=== PATIENT | female | born 1965 | race Caucasian/White ===

== ENCOUNTER 2018-06-11 09:08 | Outpatient (REF) | payer MEDICARE, MEDICAID, SELFPAY ==
[2018-06-11 19:48] LABS: Anion Gap 12.5 mmol/L (3-11); BUN 16 mg/dL (7-18); CO2 22.5 mmol/L (21.0-32.0); CREATININE 1.08 mg/dL (0.55-1.02); Calcium 8.8 mg/dL (8.5-10.1); Chloride 107 mmol/L (98-107); Cholesterol 176 mg/dL (50-200); Estimated GFR 52.87 (mL/min/1.73m2); Glucose 88 mg/dL (70-100); HDL Cholesterol 54 mg/dL (40-60); LDL CHOLESTEROL 103 mg/dL (<100); Potassium 4.3 mmol/L (3.5-5.1); Sodium 142 mmol/L (136-145); Triglyceride 103 mg/dL (30-150)
[2018-06-11 23:21] LABS: Vitamin D 25 Total 39.5 ng/ml (30-100)
[2018-06-13 11:45] LABS: Hepatitis C Ab w Rflx HCV PCR Negative (NEGAT)
== END 2018-06-11 09:28 ==
LOC: NCHCN 09:08
PROVIDERS: PCP Nurse Practitioner Family; Visit Provider Nurse Practitioner Family
DX: M89.9 Disorder of bone, unspecified (principal); R79.89 Other specified abnormal findings of blood chemistry; Z13.6 Encounter for screening for cardiovascular disorders; Z11.59 Encounter for screening for other viral diseases
CPT/HCPCS: 80048; 80061; 82306; 83721; 86803

== ENCOUNTER 2018-10-30 14:50 | Outpatient (REF) | payer MEDICARE, MEDICAID, SELFPAY ==
--- NOTE | 2018-10-30 14:25 | PAPFT_PTH ---
PATIENT: Saige Middleton [id number] AGE/SX: 53/F ROOM: RE10/30/[address]: Adenike Mcclellan : 1965 BED: DIS: 10/30/2018 SPEC #: [id number] RECD: 10/30/18 18:09 STATUS: GALO STEIN #: [id number] CHANCE: 10/30/18 14:[address]: Adenike Mcclellan DEPT: [facility] Cytology RECD BY: Micki Garcia Tissues: 1 - CX/ENDOCX FOR PAP SMEARS Procedures: PAP THIN PREP/UVM Screening HPV DNA PROBE Comments: [id number]
== END 2018-10-30 15:10 ==
LOC: NCHCN 14:50
PROVIDERS: PCP Nurse Practitioner Family; Visit Provider Nurse Practitioner Family
DX: Z12.4 Encounter for screening for malignant neoplasm of cervix (principal); Z11.51 Encounter for screening for human papillomavirus (HPV)
CPT/HCPCS: 88142; 87624

== ENCOUNTER 2019-11-08 20:44 | Outpatient (REF) | payer MEDICARE, MEDICAID, SELFPAY ==
[2019-11-08 19:12] LABS: Anion Gap 10.2 mmol/L (3-11); BUN 19 mg/dL (7-18); CO2 24.8 mmol/L (21.0-32.0); CREATININE 1.07 mg/dL (0.55-1.02); Calcium 8.6 mg/dL (8.5-10.1); Chloride 107 mmol/L (98-107); Estimated GFR 53.05 (mL/min/1.73m2); Glucose 96 mg/dL (74-106); Potassium 3.7 mmol/L (3.5-5.1); Sodium 142 mmol/L (136-145)
[2019-11-11 05:58] LABS: Vitamin D 25 Total 34.4 ng/ml (30-100)
== END 2019-11-08 21:04 ==
LOC: NCHCN 20:44
PROVIDERS: PCP Nurse Practitioner Family; Visit Provider Nurse Practitioner Psychiatric/Mental Health
DX: Z79.899 Other long term (current) drug therapy (principal); Z51.81 Encounter for therapeutic drug level monitoring; R69 Illness, unspecified
CPT/HCPCS: 80048; 82306; 84443

== ENCOUNTER 2020-02-04 13:59 | Outpatient (REF) | payer MEDICARE, MEDICAID, SELFPAY | END 2020-02-04 14:19 | LOC: NCHCN 13:59 | PROVIDERS: PCP Nurse Practitioner Family; Visit Provider Nurse Practitioner Family | DX: N39.0 Urinary tract infection, site not specified (principal) | CPT/HCPCS: 87077; 87086; 87186 ==

== ENCOUNTER 2020-08-24 14:49 | Outpatient (REF) | payer MEDICARE, MEDICAID, SELFPAY ==
[2020-08-25 13:45] LABS: COVID-19 RT-PCR UVMMC Result Negative (Negative)
== END 2020-08-24 14:50 | disposition home or self-care (01) ==
LOC: NCHCN 14:49
PROVIDERS: PCP Nurse Practitioner Family; Visit Provider Internal Medicine
DX: Z20.822 Contact with and (suspected) exposure to COVID-19 (principal)
CPT/HCPCS: U0003; U0005

== ENCOUNTER 2020-11-10 11:04 | Outpatient (REF) | payer MEDICARE, MEDICAID, SELFPAY ==
[2020-11-10 17:17] LABS: Iron 80 ug/dL (50-170)
[2020-11-10 17:44] LABS: Ferritin 136 ng/mL (8-252); Vitamin B12 329 pg/mL (193-986)
== END 2020-11-10 11:05 | disposition home or self-care (01) ==
LOC: NCHCN 11:04
PROVIDERS: PCP Nurse Practitioner Family; Visit Provider Nurse Practitioner Family
DX: M16.12 Unilateral primary osteoarthritis, left hip (principal)
CPT/HCPCS: 82607; 82728; 83540; 83735

== ENCOUNTER 2020-12-08 16:35 | Outpatient (REF) | payer MEDICARE, MEDICAID, SELFPAY ==
[2020-12-10 09:58] LABS: Hepatitis C Ab w Rflx HCV PCR Negative (Negative)
[2020-12-10 10:10] LABS: HIV-1/2 Ag & Ab Screen Negative (Negative)
[2020-12-10 14:36] LABS: Chlamydia Result Negative (Negative); GC Result Negative (Negative)
[2020-12-11 11:56] LABS: HSV Type 1 Ab, IgG Negative (Negative); HSV Type 2 Ab, IgG Positive (Negative)
== END 2020-12-08 16:36 | disposition home or self-care (01) ==
LOC: NCHCN 16:35
PROVIDERS: PCP Nurse Practitioner Family; Visit Provider Nurse Practitioner Family
DX: Z11.3 Encounter for screening for infections with a predominantly sexual mode of transmission (principal); Z11.4 Encounter for screening for human immunodeficiency virus [HIV]; Z11.59 Encounter for screening for other viral diseases
CPT/HCPCS: 86803; 87389; 87491; 87591; 86695; 86696

== ENCOUNTER 2021-01-25 23:56 | Emergency (ER) | payer MEDICARE, MEDICAID, SELFPAY ==
[2021-01-26] VITALS (17 sets, daily range): BP systolic 101–119; BP diastolic 60–77; PULSE 65–78; RESP 12–27; TEMP 36.2; O2SAT 95–98
--- NOTE | 2021-01-26 | DI.CT_ITS ---
Exam(s) CT HEAD WO EXAM: CT HEAD WO CLINICAL HISTORY: new onset seizure. TECHNIQUE: Imaging Protocol: Axial computed tomography images with coronal and sagittal reformatted images were created and reviewed COMPARISON: No exams were available for comparison FINDINGS: Ventricles and Extra axial spaces: Normal in size and morphology for the patient's age. Hemorrhage: None. Cerebral parenchyma: Normal. Midline shift: None. Brainstem/Cerebellum: Normal. Calvarium: Normal. Visualized Paranasal sinuses/Mastoids: Clear. Soft Tissues: Unremarkable. IMPRESSION: No acute intracranial process. RADIATION DOSE DELIVERED: 719.88mGy.cm Total DLP DATA REPOSITORY: All CT scans at this facility are submitted to the National Radiology Data Registry (NRDR) Dose Index Registry (DIR) with the [employer] ([employer]). RADIATION OPTIMIZATION: All CT scans at this facility use at least one of these dose optimization te chniques: automated exposure control; mA and/or kV adjustment per patient size (includes targeted exa ms where dose is matched to clinical indication); or iterative reconstruction.
--- NOTE | 2021-01-26 | RT.EKG_ITS ---
APPROVED REPORT Exam: Resting ECG Reason for Exam: shortness of breath Patient Location: E HR:68 bpm ECG Measurements Heart Rate 68 AXIS NJ 156 P 73 QRSd 97 QRS 71 QT 387 T 39 QTc 411 Conclusion Sinus rhythm...normal P axis, V-rate 60- 99 Normal Depue Normal Electrocardiogram
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
[2021-01-26 00:46] LABS: Abs Immature Grans 0.03 10^3/uL (0.0-0.06); Absolute Basophil Count 0.04 10^3/uL (0.0-0.2); Absolute Eosinophil Count 0.15 10^3/uL (0.0-0.7); Absolute Lymphocyte Count 2.28 10^3/uL (1.2-3.4); Absolute Monocyte Count 0.68 10^3/uL (0.1-0.8); Absolute Neutrophil Count 7.19 10^3/uL (1.2-6.7); Basophils % 0.4; Eosinophils % 1.4; HCT 36.1 % (36.0-46.0); HGB 11.8 g/dL (11.2-15.7); Immature Grans % 0.3; MCH 33.5 pg (27.0-33.0); MCHC 32.7 % (32.0-36.0); MCV 102.6 fL (80-95); MPV 9.5 fL (8.0-11.0); Monocytes % 6.6; Neutrophils % 69.3; Nucleated RBC 0 %; Platelet Count 289 10^3/uL (130-400); RBC 3.52 10^6/uL (3.93-5.22); RDW 13.2 % (11.7-14.6); RDW-SD 49.9 fL; WBC 10.37 10^3/uL (4.4-10.8)
[2021-01-26 01:09] LABS: ALT 18 U/L (14-59); AST 14 U/L (15-37); Albumin 3.3 g/dL (3.4-5.0); Alkaline Phosphatase 104 U/L (46-116); Anion Gap 12.4 mmol/L (3-11); BUN 12 mg/dL (7-18); Bilirubin, Total 0.2 mg/dL (0.2-1.0); CO2 21.6 mmol/L (21.0-32.0); CREATININE 1.1 mg/dL (0.55-1.02); Calcium 8.5 mg/dL (8.5-10.1); Chloride 109 mmol/L (98-107); Glucose 96 mg/dL (74-106); Magnesium 1.9 mg/dL (1.8-2.4); Potassium 3.5 mmol/L (3.5-5.1); Sodium 143 mmol/L (136-145); TSH (W/Ref FT4) 2.93 uIU/mL (0.36-3.74)
[2021-01-26 01:10] LABS: *AMPHETAMINES SCREEN URINE Negative (Negative); *BARBITURATES SCREEN URINE Negative (Negative); *BENZODIAZEPINES SCREEN URINE Negative (Negative); Cannabinoids THC Positive (Negative); Cocaine Screen,Urine Negative (Negative); METHADONE URINE SCREEN Negative (Negative); OPIATES URINE SCREEN Negative (Negative)
[2021-01-26 01:12] LABS: Bilirubin Negative (Negative); Blood Negative (Negative); Clarity Sl Cloudy (Clear); Glucose Negative (Negative); Ketones Negative (Negative); Leukocyte Esterase Negative (Negative); Nitrite Negative (Negative); Specific Gravity 1.025 (1.005-1.025); Tricyclic Antidepressants Negative (Negative); Urobilinogen 0.2 EU/dL (Up TO 0.2); pH 5.5 (5-8)
[2021-01-26 01:12] LABS: ETHANOL BLOOD < 3.0 mg/dL (<3)
--- NOTE | 2021-01-26 02:10 | DI.VRAD_ITS ---
PROCEDURE INFORMATION: Exam: CT Head Without Contrast Exam date and time: 01/26/2021 12:07 AM Age: 55 years old Clinical indication: Other: Seizue; Patient HX: New onset seizure TECHNIQUE: Imaging protocol: Computed tomography of the head without contrast. Radiation optimization: All CT scans at this facility use at least one of these dose optimization techniques: automated exposure control; mA and/or kV adjustment per patient size (includes targeted exams where dose is matched to clinical indication); or iterative reconstruction. COMPARISON: No relevant prior studies available. FINDINGS: Brain: Mild periventricular white matter hypoattenuation is probably due to chronic small vessel ischemia. Cerebral ventricles: No ventriculomegaly. Paranasal sinuses: Visualized sinuses are unremarkable. No fluid levels. Mastoid air cells: Visualized mastoid air cells are well aerated. Bones/joints: Unremarkable. No acute fracture. Soft tissues: Unremarkable. IMPRESSION: No acute intracranial pathology Dictated and Authenticated by: Jimbo Key MD. Ordering:CEE Nixon MD
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
== END 2021-01-26 05:25 | disposition left against medical advice (07) ==
PROVIDERS: Emergency Provider Emergency Medicine; PCP Nurse Practitioner Family
DX: G40.409 Other generalized epilepsy and epileptic syndromes, not intractable, without status epilepticus (principal); Z53.29 Procedure and treatment not carried out because of patient's decision for other reasons
CPT/HCPCS: 36415; 80053; 80307; 93005; 99283; 99285; 70450; 80320; 81003; 83735; 84443; 84484; 85025; 93010; 99222

== ENCOUNTER 2021-02-25 09:25 | Outpatient (REF) | payer MEDICARE, MEDICAID, SELFPAY ==
[2021-02-27 12:29] LABS: COVID-19 RT-PCR UVMMC Result Negative (Negative)
== END 2021-02-25 09:26 | disposition home or self-care (01) ==
LOC: NCHCN 09:25
PROVIDERS: PCP Nurse Practitioner Family; Visit Provider Nurse Practitioner Family
DX: Z20.822 Contact with and (suspected) exposure to COVID-19 (principal)
CPT/HCPCS: U0003

== ENCOUNTER 2021-04-12 15:08 | Outpatient (REF) | payer MEDICARE, MEDICAID, SELFPAY ==
[2021-04-14 14:12] LABS: COVID-19 RT-PCR UVMMC Result Negative (Negative)
== END 2021-04-12 15:09 | disposition home or self-care (01) ==
LOC: NCHCN 15:08
PROVIDERS: PCP Nurse Practitioner Family; Visit Provider Nurse Practitioner Family
DX: Z20.822 Contact with and (suspected) exposure to COVID-19 (principal)
CPT/HCPCS: U0003

== ENCOUNTER 2021-04-14 21:16 | Outpatient (REF) | payer MEDICARE, MEDICAID, SELFPAY | END 2021-04-14 21:17 | disposition home or self-care (01) | LOC: NCHCN 21:16 | PROVIDERS: PCP Nurse Practitioner Family; Visit Provider Physician Assistant | DX: N89.8 Other specified noninflammatory disorders of vagina (principal); H92.02 Otalgia, left ear | CPT/HCPCS: 87480; 87510; 87660 ==

== ENCOUNTER 2021-04-26 09:20 | Outpatient (REF) | payer MEDICARE, MEDICAID, SELFPAY ==
[2021-04-28 10:51] LABS: COVID-19 RT-PCR UVMMC Result Negative (Negative)
== END 2021-04-26 09:21 | disposition home or self-care (01) ==
LOC: NCHCN 09:20
PROVIDERS: PCP Nurse Practitioner Family; Visit Provider Nurse Practitioner Family
DX: Z20.822 Contact with and (suspected) exposure to COVID-19 (principal)
CPT/HCPCS: U0003

== ENCOUNTER 2021-05-26 15:22 | Outpatient (REF) | payer MEDICARE, MEDICAID, SELFPAY ==
[2021-05-28 15:54] LABS: COVID-19 RT-PCR UVMMC Result Negative (Negative)
== END 2021-05-26 15:23 | disposition home or self-care (01) ==
LOC: NCHCN 15:22
PROVIDERS: PCP Nurse Practitioner Family; Visit Provider Nurse Practitioner Family
DX: Z20.822 Contact with and (suspected) exposure to COVID-19 (principal); A59.01 Trichomonal vulvovaginitis
CPT/HCPCS: U0003; 87480; 87510; 87660

== ENCOUNTER 2021-07-13 01:52 | Outpatient (CLI) | payer MEDICARE, MEDICAID, SELFPAY ==
--- NOTE | 2021-07-13 | DI.MRI_ITS ---
Exam(s) MR LOWER EXTREMITY RT WO/W EXAM: MR LOWER EXTREMITY RT WO/W CLINICAL HISTORY: SOFT TISSUE DISORDER M79.89, PAIN RT FOOT, SPONGY AREA RT FOOT THAT HAS. TECHNIQUE: Multiplanar multisequence MRI was performed. COMPARISON: No exams were available for comparison FINDINGS: MR examination of the forefoot was performed according to the usual protocol with additional pre and post contrast multiplanar T1 fat sat imaging.. No focal bony signal abnormality is seen in the region surveyed. No bony enhance min is identified o n post contrast examination. The tendinous and ligamentous structures show normal signal and appear intact, no evidence of ligamen tous or tendinous disruption. There is a poorly defined lobulated area of abnormal signal measuring up to about 2.5 cm in diameter which is located in the subcutaneous fat on the plantar aspect of the 2nd MTP joint. The area of abn ormal signal extends just lateral to the proximal half of the proximal phalanx of the 2nd toe. This appears to be distinct from the underlying flexor tendon. This shows mixed signal on T2 weighted pre contrast examination suggesting edema and fluid collections with internal debris. The region of sign al abnormality is intermediate to low signal on T1 weighted images. There is significant enhancement on post contrast examination, again in a heterogeneous fashion. The findings as described are most suggestive of an infectious process with a phlegmon or abscess in the subcutaneous tissues. Please correlate clinically regarding any known underlying process in this patient. IMPRESSION: Suspect plantar subcutaneous abscess or phlegmon as described above. Please correlate clinically reg arding any known underlying disease process in this patient. No evidence of osteomyelitis. Intact ligamentous and tendinous structures. DATA REPOSITORY:
[2021-07-13 08:50] LABS: CREATININE 0.8 mg/dL (0.55-1.02)
[2021-07-13] MEDS: Normal Saline Flush 10 ML SYR IVP (09:12)
[2021-07-13] MEDS: Gadoterate meglumine 20 ML VIAL 15 ML IVP (09:13)
== END 2021-07-13 02:12 ==
PROVIDERS: PCP Nurse Practitioner Family; Visit Provider Podiatrist Foot & Ankle Surgery
DX: Z01.812 Encounter for preprocedural laboratory examination (principal); M79.671 Pain in right foot; M79.89 Other specified soft tissue disorders; R60.0 Localized edema; L02.611 Cutaneous abscess of right foot
CPT/HCPCS: 73720; 82565

== ENCOUNTER 2021-11-05 02:06 | Outpatient (CLI) | payer MEDICARE, MEDICAID, SELFPAY ==
[2021-11-05 14:40] LABS: Abs Immature Grans 0.02 10^3/uL (0.0-0.06); Absolute Basophil Count 0.06 10^3/uL (0.0-0.2); Absolute Eosinophil Count 0.23 10^3/uL (0.0-0.7); Absolute Lymphocyte Count 2.32 10^3/uL (1.2-3.4); Absolute Neutrophil Count 5.46 10^3/uL (1.2-6.7); Basophils % 0.7; Eosinophils % 2.7; HCT 39.6 % (36.0-46.0); HGB 12.6 g/dL (11.2-15.7); Immature Grans % 0.2; Lymphocytes % 27.3; MCH 32.5 pg (27.0-33.0); MCHC 31.8 % (32.0-36.0); MCV 102.1 fL (80-95); Monocytes % 4.7; Neutrophils % 64.4; Platelet Count 381 10^3/uL (130-400); RBC 3.88 10^6/uL (3.93-5.22); WBC 8.49 10^3/uL (4.4-10.8)
[2021-11-05 14:42] LABS: ESR 12 mm/hr (0-30)
[2021-11-05 15:25] LABS: Albumin 3.5 g/dL (3.4-5.0); Alkaline Phosphatase 167 U/L (46-116); BUN 14 mg/dL (7-18); Bilirubin, Total 0.2 mg/dL (0.2-1.0); CO2 25.6 mmol/L (21.0-32.0); Calcium 8.6 mg/dL (8.5-10.1); Chloride 103 mmol/L (98-107); Estimated GFR 56.95 (mL/min/1.73m2); Glucose 121 mg/dL (74-106); Potassium 4.1 mmol/L (3.5-5.1); Sodium 137 mmol/L (136-145)
[2021-11-05 15:26] LABS: ALT 23 U/L (14-59); AST 18 U/L (15-37); Anion Gap 8.4 mmol/L (3-11); C-Reactive Protein 0.66 mg/dL (0.0-0.3)
== END 2021-11-05 02:07 | disposition home or self-care (01) ==
LOC: LBO 02:06
PROVIDERS: PCP Nurse Practitioner Family; Visit Provider Podiatrist Foot & Ankle Surgery
DX: M79.671 Pain in right foot (principal); M79.89 Other specified soft tissue disorders
CPT/HCPCS: 36415; 80053; 85652; 85025; 86140

== ENCOUNTER 2021-11-15 01:56 | Outpatient (CLI) | payer MEDICARE, MEDICAID, SELFPAY | END 2021-11-15 01:57 | disposition home or self-care (01) | LOC: LBO 01:57 | PROVIDERS: PCP Nurse Practitioner Family; Visit Provider Podiatrist Foot & Ankle Surgery ==

== ENCOUNTER 2021-12-31 19:47 | Outpatient (REF) | payer MEDICARE, MEDICAID, SELFPAY ==
[2021-12-31 20:12] LABS: Bilirubin Negative (Negative); Blood Trace-intact (Negative); Clarity Clear (Clear); Glucose Negative (Negative); Ketones Negative (Negative); Leukocyte Esterase Negative (Negative); Nitrite Negative (Negative); Urobilinogen 0.2 EU/dL (Up TO 0.2); pH 6.5 (5-8)
[2021-12-31 20:14] LABS: Bacteria Rare HPF (Negative); C & S Indicated? No; Casts Negative LPF (Negative); Crystals Negative HPF (Negative); Epithelial Cells Rare HPF (Negative); Mucus Negative (Negative); RBC 0-2 HPF (0-2); WBC Negative HPF (0-5)
== END 2021-12-31 19:48 | disposition home or self-care (01) ==
LOC: LBN 19:47
PROVIDERS: PCP Nurse Practitioner Family; Visit Provider Urology
DX: N39.0 Urinary tract infection, site not specified (principal)
CPT/HCPCS: 81003; 81015

== ENCOUNTER 2022-01-06 20:13 | Outpatient (REF) | payer MEDICARE, MEDICAID, SELFPAY ==
[2022-01-10 15:28] LABS: Chlamydia Result Negative (Negative); GC Result Negative (Negative)
== END 2022-01-06 20:14 | disposition home or self-care (01) ==
LOC: LBN 20:13
PROVIDERS: PCP Nurse Practitioner Family; Visit Provider Physician Assistant Medical
DX: N89.8 Other specified noninflammatory disorders of vagina (principal)
CPT/HCPCS: 87491; 87591; 87480; 87510; 87660

== ENCOUNTER 2023-10-04 21:54 | Outpatient (REF) | payer MEDICARE, MEDICAID, SELFPAY ==
[2023-10-04 20:29] LABS: ALT 18 U/L (14-59); AST 20 U/L (15-37); Albumin 3.5 g/dL (3.4-5.0); Alkaline Phosphatase 133 U/L (46-116); Anion Gap 11.1 mmol/L (3-11); BUN 15 mg/dL (7-18); Bilirubin, Total 0.2 mg/dL (0.2-1.0); CO2 22.9 mmol/L (21.0-32.0); CREATININE 1.1 mg/dL (0.55-1.02); Calcium 8.6 mg/dL (8.5-10.1); Calculated LDL 101 mg/dL (<100); Chloride 108 mmol/L (98-107); Cholesterol 182 mg/dL (<200); Estimated GFR 57.52 (mL/min/1.73m2); Glucose 80 mg/dL (74-106); HDL Cholesterol 64 mg/dL (40-60); Potassium 3.9 mmol/L (3.5-5.1); Sodium 142 mmol/L (136-145); Total Protein 7.6 g/dL (6.4-8.2); Triglyceride 88 mg/dL (<150)
== END 2023-10-04 21:55 | disposition home or self-care (01) ==
LOC: NCHCN 21:54
PROVIDERS: PCP Nurse Practitioner Family; Visit Provider Nurse Practitioner Family
DX: Z13.220 Encounter for screening for lipoid disorders (principal)
CPT/HCPCS: 80053; 80061

== ENCOUNTER 2023-11-09 20:34 | Outpatient (REF) | payer MEDICARE, MEDICAID, SELFPAY | END 2023-11-09 20:35 | disposition home or self-care (01) | LOC: NCHCN 20:34 | PROVIDERS: PCP Nurse Practitioner Family; Visit Provider Nurse Practitioner Family | DX: R30.0 Dysuria (principal) | CPT/HCPCS: 87077; 87086; 87186 ==

== ENCOUNTER 2024-04-03 20:21 | Outpatient (REF) | payer MEDICARE, MEDICAID, SELFPAY ==
--- NOTE | 2024-04-03 14:20 | PAPFT_PTH ---
PATIENT: Saige Middleton LOC: [facility] U#:[id number] AGE/SX: 58/F ROOM: RE04/03/[address]: Joaquin Brady : 1965 BED: DIS: 04/03/2024 SPEC #: [id number] RECD: 04/04/24 13:00 STATUS: JOSIEIsadora RETao #: [id number] CHANCE: 04/03/24 14:[address]: Ludy Bradylaide DEPT: [facility] Cytology RECD BY: Micki Garcia ENTERED: 04/04/24 13:01 SP TYPE: PAPFT OTHR DR: Adenike Mcclellan Tissues: 1 - CX/ENDOCX FOR PAP SMEARS Procedures: PAP THIN PREP/UVM Screening HPV DNA PROBE Comments: [id number] (HPV 16 & 18/45)
== END 2024-04-03 20:22 | disposition home or self-care (01) ==
LOC: LBN 20:21
PROVIDERS: PCP Nurse Practitioner Family; Visit Provider Nurse Practitioner Family
DX: Z12.4 Encounter for screening for malignant neoplasm of cervix (principal)
CPT/HCPCS: 88142; 87624

== ENCOUNTER 2024-09-09 19:24 | Outpatient (REF) | payer MEDICARE, MEDICAID, SELFPAY ==
[2024-09-11 12:09] LABS: Chlamydia Result Negative (Negative); GC Result Negative (Negative)
[2024-09-11 13:21] LABS: Bacterial Vaginosis (BV) Negative (Negative); Candida glabrata Negative (Negative); Candida species group Negative (Negative); Trichomonas vaginalis Positive (Negative)
== END 2024-09-09 19:25 | disposition home or self-care (01) ==
LOC: NCHCN 19:24
PROVIDERS: PCP Nurse Practitioner Family; Visit Provider Nurse Practitioner Family
DX: Z11.3 Encounter for screening for infections with a predominantly sexual mode of transmission (principal); N89.8 Other specified noninflammatory disorders of vagina
CPT/HCPCS: 81513; 87481; 87491; 87591; 87661

== ENCOUNTER 2025-05-07 16:42 | Outpatient (REF) | payer MEDICARE, MEDICAID, SELFPAY ==
[2025-05-07 20:38] LABS: C & S Indicated? No; RBC 0-2 HPF (0-2); WBC Negative HPF (0-5)
== END 2025-05-07 16:43 | disposition home or self-care (01) ==
LOC: NCHCN 16:42
PROVIDERS: PCP Nurse Practitioner Family; Visit Provider Nurse Practitioner Family
DX: R39.9 Unspecified symptoms and signs involving the genitourinary system (principal)
CPT/HCPCS: 81015; 87086

== ENCOUNTER 2025-07-08 20:45 | Emergency (ER) | payer MEDICARE, SELFPAY ==
[2025-07-08 20:53] VITALS: BP 147/86; PULSE 98; RESP 20; TEMP 35.8; O2SAT 93
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
[2025-07-08] MEDS: HYDROmorphone 2 MG/ML SYR 0.5 MG IVP (23:45)
--- NOTE | 2025-07-09 | DI.RAD_ITS ---
Exam(s) XR SHOULDER RT 1V EXAM: XR SHOULDER RT 1V CLINICAL HISTORY: Post reduction. TECHNIQUE: 2D digital imaging was performed. COMPARISON: CR,XR XR SHOULDER RT COMPLETE 2+V from 07/08/2025 FINDINGS: Single AP view performed post reduction There is satisfactory realignment of the glenohumeral joint. No fracture identified. Subacromial space is not diminished. Chronic fracture deformity at the midshaft of the ipsilateral humerus is again noted IMPRESSION: Successful glenohumeral joint reduction. No fracture evident. DATA REPOSITORY: RADIATION DOSE DELIVERED:
[2025-07-09 00:45] VITALS: O2SAT 96
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
[2025-07-09] MEDS: Ketorolac 15 MG/ML VIAL IVP (01:21)
[2025-07-09 02:24] VITALS: BP 144/80; PULSE 88; RESP 16; TEMP 37; O2SAT 96
== END 2025-07-09 01:30 | disposition home or self-care (01) ==
PROVIDERS: Emergency Provider Registered Nurse Emergency; PCP Nurse Practitioner Family
DX: S43.004A Unspecified dislocation of right shoulder joint, initial encounter (principal); V48.0XXA Car driver injured in noncollision transport accident in nontraffic accident, initial encounter
CPT/HCPCS: 99284 ×2; 36415; 96374; 96375; 23650; 71046; 73020; 73030; 73060; J1171; J1885

== ENCOUNTER 2025-07-11 10:59 | Emergency (ER) | payer MEDICARE, SELFPAY ==
[2025-07-11 11:09] VITALS: BP 125/78; PULSE 71; RESP 16; O2SAT 93
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
[2025-07-11] MEDS: Acetaminophen 325 MG TAB 650 MG PO (12:18)
[2025-07-11] MEDS: Lidocaine 5% Patch 1 PATCH TP (12:18)
== END 2025-07-11 14:12 | disposition home or self-care (01) ==
PROVIDERS: Emergency Provider Nurse Practitioner Family; PCP Nurse Practitioner Family
DX: S16.1XXA Strain of muscle, fascia and tendon at neck level, initial encounter (principal); S06.0XAA Concussion with loss of consciousness status unknown, initial encounter; V49.9XXA Car occupant (driver) (passenger) injured in unspecified traffic accident, initial encounter
CPT/HCPCS: 99283; 99284; 70450; 72125